=== PATIENT | female | born 1945 | race Caucasian/White ===

== ENCOUNTER 2018-02-05 12:17 | Inpatient (IN) | payer MEDICARE ==
[2018-02-05 12:33] VITALS: BP 105/60
--- NOTE | 2018-02-05 17:34 | Psychosocial Evaluation ---
DATE OF SERVICE: 02/05/2018 IDENTIFYING DATA: The patient is a 72-year-old woman admitted here on a 5150 after she was transferred from [facility]. CHIEF COMPLAINT: "I should not be here." HISTORY OF PRESENT ILLNESS: This is a psychiatric hospitalization to [facility] for this patient who is reported to have been evolved from the assisted living facility and the patient has no concerned even with her broken left arm. The patient is not able to care for herself. The patient has been reported to have been not paying rent and loss the place. The patient at the time of the evaluation has been confused and is not making much sense. The patient has been demanding that she should be discharged. PAST PSYCHIATRIC HISTORY: Details are not known at this time. MEDICAL HISTORY: Physical examination requested to be done by Dr. Pompa. SUBSTANCE ABUSE HISTORY: None. PHYSICAL OR SEXUAL ABUSE HISTORY: None. LEGAL PROBLEMS: None at this time. STRENGTH AND ASSETS: The patient is motivated. MENTAL STATUS EXAMINATION: The patient is a 72-year-old woman, looking her stated age, superficially cooperative. Eye contact is fair. Mood is noted to be irritable. Affect is constricted. The patient has paranoid delusions. The patient is denying any command hallucinations. Insight and judgment are noted to be very much impaired. Impulse control is noted to be poor. Coping skills are noted to be very poor. The patient is gravely disabled and has no clue how she is going to be supporting herself. The patient's short and long-term memory are noted to be poor. The patient is stating that she knows where she is and she is now going to tell me, the patient, however, with great difficulty has been saying that she is close to 72. Attention span and concentration are poor. The patient is walking away when I am trying to talk to her. DIAGNOSTIC IMPRESSION: AXIS I A: Psychosis, not otherwise specified. B. Dementia and behavioral change, secondary trait. AXIS II: None. AXIS III: As per Dr. Pompa. IMMEDIATE TREATMENT PLAN: The patient is going to be observed on inpatient unit, provided with supportive psychotherapy. The patient is going to be closely monitored. I encouraged her to participate in the groups and verbalize the concerns rather than to act out. JOB# [id number]
[2018-02-05] MEDS ORDERED: Maalox 30 mL Cup PO PRN (20:15)
[2018-02-05] MEDS ORDERED: Magnesium Hydroxide (MOM) 30 mL UDC PO PRN (20:15)
[2018-02-06] MEDS: Multivitamin Tab PO SCH (09:51)
--- NOTE | 2018-02-07 02:12 | Progress Notes ---
DATE: 02/06/2018 SUBJECTIVE: Staff was spoken to. The patient is interviewed. Mood is noted to be irritable. Affect is constricted. Insight and judgment are noted to be still impaired. Continues to be psychotic and the patient is pacing most of the time on the unit. The patient has been trying to AWOL. The patient has no idea that she has a broken upper arm. The patient's insight and judgment are noted to be very much impaired. Coping skills are noted to be extremely poor. The patient is getting into others' businesses and needs to be redirected. ASSESSMENT: The patient is still psychotic and gravely disabled. PLAN: To continue the patient with the supportive therapy and followup. JOB# [id number]
[2018-02-07] MEDS: Multivitamin Tab PO SCH (08:42)
--- NOTE | 2018-02-07 15:21 | History & Physical ---
ADMIT DATE: 02/07/2018 CHIEF COMPLAINT: Transfer from [facility] for 5150. HISTORY OF PRESENT ILLNESS: This is a 72-year-old female who was transferred from [facility]. The patient is unable to care for herself and at times is confused. For this reason, the patient is now here at the [facility]. PAST MEDICAL HISTORY: Psychosis, schizophrenia. PAST SURGICAL HISTORY: None per patient. ALLERGIES: CODEINE, DIAZEPAM. MEDICATIONS: Please see medication list. REVIEW OF SYSTEMS: GENERAL: Denies any fevers and chills. CARDIOVASCULAR: Denies chest pain. RESPIRATORY: Denies shortness of breath. GASTROINTESTINAL: Denies nausea, vomiting, abdominal pain. GENITOURINARY: Denies increased frequency or dysuria. NEUROLOGIC: No headaches, seizures or syncope. All other systems are reviewed and are negative. PHYSICAL EXAMINATION: GENERAL: Elderly female, awake, alert, in no apparent distress. VITAL SIGNS: Temperature 98, heart rate 93, blood pressure 118/72, respiration 18, O2 97%. HEENT: Head; normocephalic, atraumatic. NECK: Supple. No mass. LUNGS: Clear bilaterally. HEART: Regular rate and rhythm. ABDOMEN: Soft, nontender. ASSESSMENT: Schizophrenia, psychosis. PLAN: Fall precautions will be initiated and safety precautions. We will continue to follow this patient. JOB# [id number]
--- NOTE | 2018-02-07 20:45 | Progress Notes ---
DATE: 02/07/2018 SUBJECTIVE: Staff was spoken to. The patient is interviewed. Mood is noted to be irritable. Affect is constricted. Insight and judgment at this time are noted to be still impaired. Impulse control seems to be poor. The patient is reporting that she is not able to sleep. The patient continues to be paranoid and has been pacing most of the time on the unit. Insight and judgment at this time are noted to be very much impaired. Impulse control seems to be limited. The patient has no place to return to. The patient, however, has a very high fall risk. ASSESSMENT: The patient is still grossly psychotic. PLAN: To increase the dose on the Seroquel to 25 mg and follow the patient up. JOB# [id number]
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
--- NOTE | 2018-02-08 08:59 | General Progress Note ---
Subjective - Review of Systems Events since last encounter: patient in a 5150 hold transfer from [facility] patient confused Objective - Physical Exam Vitals and I&O: Vital Signs Temp 98.1 F 02/08/18 06:32 Pulse 70 02/08/18 06:32 Resp 20 02/08/18 06:32 BP 119/62 02/08/18 06:32 Pulse Ox 100 02/08/18 06:32 Intake & Output 02/07/18 02/08/18 02/08/18 18:59 06:59 18:59 Intake Total 1200 480 Balance 1200 480 Intake: Oral 1200 480 Other: # Voids 3 2 # Bowel Movements 1 1 Active Medications: Current Medications Acetaminophen (Tylenol) 650 mg PO Q4HR PRN PRN Reason: Mild Pain / Temp above 100 Stop: 04/06/18 20:14 Last Admin: 02/08/18 05:07 Dose: 650 mg Al Hydrox/Mg Hydrox/Simethicone (Maalox) 30 ml PO Q4HR PRN PRN Reason: GI DISTRESS Stop: 04/06/18 20:14 Lorazepam (Ativan) 0.5 mg PO Q4HR PRN; Protocol PRN Reason: Anxiety Stop: 03/07/18 20:14 Last Admin: 02/07/18 03:03 Dose: 0.5 mg Magnesium Hydroxide (Milk Of Magnesia) 30 ml PO HS PRN PRN Reason: Constipation Multivitamins/Vitamin C (Theragran) 1 tab PO DAILY CORNELL Stop: 04/07/18 08:59 Last Admin: 02/07/18 08:42 Dose: 1 tab Quetiapine Fumarate (Seroquel) 25 mg PO HS CORNELL PRN Reason: Protocol Stop: 04/08/18 20:59 Last Admin: 02/07/18 21:20 Dose: 25 mg Zolpidem Tartrate (Ambien) 5 mg PO HS PRN PRN Reason: Insomnia Stop: 04/06/18 20:14 Last Admin: 02/07/18 23:00 Dose: 5 mg
[2018-02-08] MEDS: Multivitamin Tab PO SCH (09:34)
--- NOTE | 2018-02-09 07:31 | Progress Notes ---
DATE: 02/08/2018 PSYCHIATRIC PROGRESS NOTE SUBJECTIVE: Staff was spoken to. The patient is interviewed. Mood is noted to be irritable. Affect is constricted. Insight and judgment are noted to be still impaired. Impulse control is noted to be poor. Coping skills are also noted to be very poor. The patient is trying to check the exit doors and then try to AWOL. The patient has no insight into her illness. ASSESSMENT: The patient is still psychotic and impulsive. PLAN: To continue the patient with the supportive therapy and follow up. JOB# [id number]
[2018-02-09] MEDS: Multivitamin Tab PO SCH (09:36)
--- NOTE | 2018-02-09 20:22 | Internal Medicine Prog Note ---
Internal Medicine Objective - Physical Exam Vitals and I&O: Vital Signs Temp 97.8 F 02/09/18 14:00 Pulse 79 02/09/18 14:00 Resp 20 02/09/18 14:00 BP 127/75 02/09/18 14:00 Pulse Ox 96 02/09/18 14:00 Intake & Output 02/09/18 02/09/18 02/10/18 06:59 18:59 06:59 Intake Total 2320 Balance 2320 Intake: Oral 2320 Other: # Voids 5 # Bowel Movements 1 Active Medications: Current Medications Acetaminophen (Tylenol) 650 mg PO Q4HR PRN PRN Reason: Mild Pain / Temp above 100 Stop: 04/06/18 20:14 Last Admin: 02/08/18 05:07 Dose: 650 mg Al Hydrox/Mg Hydrox/Simethicone (Maalox) 30 ml PO Q4HR PRN PRN Reason: GI DISTRESS Stop: 04/06/18 20:14 Lorazepam (Ativan) 0.5 mg PO Q4HR PRN; Protocol PRN Reason: Anxiety Stop: 03/07/18 20:14 Last Admin: 02/09/18 10:30 Dose: 0.5 mg Magnesium Hydroxide (Milk Of Magnesia) 30 ml PO HS PRN PRN Reason: Constipation Multivitamins/Vitamin C (Theragran) 1 tab PO DAILY CORNELL Stop: 04/07/18 08:59 Last Admin: 02/09/18 09:36 Dose: Not Given Quetiapine Fumarate (Seroquel) 25 mg PO BID CORNELL PRN Reason: Protocol Stop: 04/10/18 16:59 Last Admin: 02/09/18 17:57 Dose: Not Given Zolpidem Tartrate (Ambien) 5 mg PO HS PRN PRN Reason: Insomnia Stop: 04/06/18 20:14 Last Admin: 02/08/18 22:58 Dose: 5 mg
--- NOTE | 2018-02-09 23:55 | Progress Notes ---
DATE: 02/09/2018 SUBJECTIVE: Staff was spoken to. The patient is interviewed. Mood is noted to be irritable. Affect is constricted. Insight and judgment is still impaired. Impulse control seems to be poor. Coping skills are also noted to be very poor. The patient has been getting easily agitated. The patient has no insight. Continues to be very paranoid. The patient is currently on the Seroquel, which is going to be gradually increased to 25 mg twice a day and the patient is going to be followed up with the supportive therapy. The patient has no place to return to. PLAN: Continue the patient with the supportive therapy and work with the field nurse case manager with regard to finding the placement for this patient. JOB# [id number]
[2018-02-10] MEDS: Multivitamin Tab PO SCH (09:09)
--- NOTE | 2018-02-10 13:38 | Internal Medicine Prog Note ---
Internal Medicine Subjective - Subjective Service Date: 02/10/18 Patient seen and examined:: with staff Patient is:: awake Per staff patient has:: tolerating meds Internal Medicine Objective - Physical Exam Vitals and I&O: Vital Signs Temp 98.4 F 02/10/18 07:45 Pulse 70 02/10/18 07:45 Resp 19 02/10/18 07:45 BP 112/66 02/10/18 07:45 Pulse Ox 99 02/10/18 07:45 Intake & Output 02/09/18 02/10/18 02/10/18 18:59 06:59 18:59 Intake Total 2320 240 Balance 2320 240 Intake: Oral 2320 240 Other: # Voids 5 5 # Bowel Movements 1 0 Active Medications: Current Medications Acetaminophen (Tylenol) 650 mg PO Q4HR PRN PRN Reason: Mild Pain / Temp above 100 Stop: 04/06/18 20:14 Last Admin: 02/08/18 05:07 Dose: 650 mg Al Hydrox/Mg Hydrox/Simethicone (Maalox) 30 ml PO Q4HR PRN PRN Reason: GI DISTRESS Stop: 04/06/18 20:14 Lorazepam (Ativan) 0.5 mg PO Q4HR PRN; Protocol PRN Reason: Anxiety Stop: 03/07/18 20:14 Last Admin: 02/09/18 10:30 Dose: 0.5 mg Magnesium Hydroxide (Milk Of Magnesia) 30 ml PO HS PRN PRN Reason: Constipation Multivitamins/Vitamin C (Theragran) 1 tab PO DAILY CORNELL Stop: 04/07/18 08:59 Last Admin: 02/10/18 09:09 Dose: Not Given Quetiapine Fumarate (Seroquel) 25 mg PO BID CORNELL PRN Reason: Protocol Stop: 04/10/18 16:59 Last Admin: 02/10/18 09:09 Dose: Not Given Zolpidem Tartrate (Ambien) 5 mg PO HS PRN PRN Reason: Insomnia Stop: 04/06/18 20:14 Last Admin: 02/08/18 22:58 Dose: 5 mg General: weak, alert HEENT: NC/AT, PERRLA Neck: Supple Lungs: CTAB Cardiovascular: RRR, Normal S1, Normal S2, without murmur Internal Medicine Assmt/Plan - Assessment Assessment: schizoprenia psychosis - Plan Plan: cpm
--- NOTE | 2018-02-11 01:41 | Progress Notes ---
DATE: 02/10/2018 SUBJECTIVE: Staff was spoken to. The patient is interviewed. Mood is noted to be irritable. Affect is constricted. The patient is pacing most of the time on the unit. Coping skills at this time are noted to be very poor. The patient is currently on Seroquel 25 mg twice a day and the patient still continues to be impulsive and needs to be redirected. The patient has been noted to be very paranoid. Coping skills are noted to be still poor. No side effects to the medications are noted. ASSESSMENT: The patient is still psychotic and impulsive. PLAN: To increase the dose on the Seroquel to 50 mg twice a day and encourage the patient to participate in the groups and verbalize the concerns rather than to act out. The patient has no place to return. Plan to continue the patient with the supportive therapy and follow up. JOB# [id number]
[2018-02-11] MEDS: Multivitamin Tab PO SCH (09:09)
--- NOTE | 2018-02-11 10:38 | Internal Medicine Prog Note ---
Internal Medicine Subjective - Subjective Patient is:: awake Per staff patient has:: tolerating meds Internal Medicine Objective - Physical Exam Vitals and I&O: Vital Signs Temp 97.8 F 02/11/18 06:00 Pulse 64 02/11/18 06:00 Resp 18 02/11/18 06:00 BP 114/66 02/11/18 06:00 Pulse Ox 96 02/11/18 06:00 Intake & Output 02/10/18 02/11/18 02/11/18 18:59 06:59 18:59 Intake Total 1100 240 Balance 1100 240 Intake: Oral 1100 240 Other: # Voids 3 1 # Bowel Movements 0 Active Medications: Current Medications Acetaminophen (Tylenol) 650 mg PO Q4HR PRN PRN Reason: Mild Pain / Temp above 100 Stop: 04/06/18 20:14 Last Admin: 02/08/18 05:07 Dose: 650 mg Al Hydrox/Mg Hydrox/Simethicone (Maalox) 30 ml PO Q4HR PRN PRN Reason: GI DISTRESS Stop: 04/06/18 20:14 Lorazepam (Ativan) 0.5 mg PO Q4HR PRN; Protocol PRN Reason: Anxiety Stop: 03/07/18 20:14 Last Admin: 02/10/18 20:16 Dose: 0.5 mg Magnesium Hydroxide (Milk Of Magnesia) 30 ml PO HS PRN PRN Reason: Constipation Multivitamins/Vitamin C (Theragran) 1 tab PO DAILY CORNELL Stop: 04/07/18 08:59 Last Admin: 02/11/18 09:09 Dose: 1 tab Quetiapine Fumarate (Seroquel) 50 mg PO BID CORNELL PRN Reason: Protocol Stop: 04/11/18 18:42 Last Admin: 02/11/18 09:10 Dose: 50 mg Zolpidem Tartrate (Ambien) 5 mg PO HS PRN PRN Reason: Insomnia Stop: 04/06/18 20:14 Last Admin: 02/10/18 20:16 Dose: 5 mg General: weak, alert HEENT: NC/AT, PERRLA Neck: Supple Lungs: CTAB Cardiovascular: RRR, Normal S1, Normal S2, without murmur Nutritional Asmnt/Malnutr-PDOC - Dietary Evaluation Malnutrition Findings (Please click <Entered> for more info): Nutritional Asmnt/Malnutrition Start: 02/10/18 16: 27 Text: Status: Complete Freq: Document 02/10/18 16:27 SARAI (Rec: 02/10/18 16:43 SARAI [id number]) Nutritional Asmnt/Malnutrition Patient General Information Nutritional Screening Moderate Risk Diagnosis psychosis Pertinent Medical Hx/Surgical Hx psychosis, schizophrenia Subjective Information Pt seen sitting on bed at time of visit, having dinner roll. Food preference given. Per EMR, PO intake 75-100%. Current Diet Order/ Nutrition Support vegetarian Pertinent Medications theragran, seroquel Pertinent Labs no lab Nutritional Hx/Data Height 1.75 m Height (Calculated Centimeters) 175.3 Current Weight (lbs) 52.617 kg Weight (Calculated Kilograms) 52.6 Weight (Calculated Grams) 88402.7 [place] Body Weight 145 Body Mass Index (BMI) 17.1 Weight Status Underweight GI Symptoms GI Symptoms None Last BM 02/09 Difficult in: None Skin Integrity/Comment: dryness Current %PO Good (75-100%) Estimated Nutritional Goals BEE in Kcals: Using Current wt Calories/Kcals/Kg 27-32 Kcals Calculated 9499-5706 Protein: Using Current wt Protein g/k.2 Protein Calculated 64 Fluid: ml 1431-1696ml (1ml/kcal) Nutritional Problem 1. Problem Problem underweight Etiology possible inadequate energy intake Signs/Symptoms: BMI 17.1 Malnutrition Alert Body Fat Depletion (Severe) Mod to Severe Depletion Protein-Calorie Malnutrition N/A Is there a minimum of two criteria No selected? Query Text:Check all the applicable criteria. A minimum of two criteria are recommended for diagnosis of either severe or non-severe malnutrition. Intervention/Recommendation Comments 1. Continue with current diet as ordered. food preference updated with lens and frames prescription clerk. 2. Monitor PO intake, wt, labs and skin integrity 3. F/U as low risk in 7 days, 02/17 Expected Outcomes/Goals Expected Outcomes/Goals 1. PO intake to meet at least 75% of nutritional needs. 2. Wt stability, skin to remain intact, labs to approach WNL.
--- NOTE | 2018-02-11 18:26 | Progress Notes ---
DATE: 02/11/2018 SUBJECTIVE: Staff was spoken to. The patient is interviewed. Mood is noted to be irritable. Affect is constricted. Insight and judgment noted to be still impaired. The patient has paranoia. The patient is pacing most of the time on the unit. Coping skills are noted to be very poor. No side effects to the medications are noted. ASSESSMENT: The patient is still paranoid. PLAN: To continue the patient with the supportive therapy, encouraged the patient to verbalize the concerns rather than to act out. [facility]# [id number]
[2018-02-12] MEDS: Multivitamin Tab PO SCH (09:13)
--- NOTE | 2018-02-12 12:11 | General Progress Note ---
Subjective - Review of Systems Events since last encounter: patient still paranoid irritable Objective - Physical Exam Vitals and I&O: Vital Signs Temp 97.6 F 02/12/18 06:51 Pulse 53 02/12/18 06:51 Resp 19 02/12/18 06:51 BP 162/87 02/12/18 06:51 Pulse Ox 96 02/12/18 06:51 Intake & Output 02/11/18 02/12/18 02/12/18 18:59 06:59 18:59 Intake Total 720 Balance 720 Intake: Oral 720 Other: # Voids 2 Active Medications: Current Medications Acetaminophen (Tylenol) 650 mg PO Q4HR PRN PRN Reason: Mild Pain / Temp above 100 Stop: 04/06/18 20:14 Last Admin: 02/08/18 05:07 Dose: 650 mg Al Hydrox/Mg Hydrox/Simethicone (Maalox) 30 ml PO Q4HR PRN PRN Reason: GI DISTRESS Stop: 04/06/18 20:14 Lorazepam (Ativan) 0.5 mg PO Q4HR PRN; Protocol PRN Reason: Anxiety Stop: 03/07/18 20:14 Last Admin: 02/10/18 20:16 Dose: 0.5 mg Magnesium Hydroxide (Milk Of Magnesia) 30 ml PO HS PRN PRN Reason: Constipation Multivitamins/Vitamin C (Theragran) 1 tab PO DAILY CORNELL Stop: 04/07/18 08:59 Last Admin: 02/12/18 09:13 Dose: 1 tab Quetiapine Fumarate (Seroquel) 50 mg PO BID CORNELL PRN Reason: Protocol Stop: 04/11/18 18:42 Last Admin: 02/12/18 09:12 Dose: 50 mg Zolpidem Tartrate (Ambien) 5 mg PO HS PRN PRN Reason: Insomnia Stop: 04/06/18 20:14 Last Admin: 02/10/18 20:16 Dose: 5 mg Nutritional Asmnt/Malnutr-PDOC - Dietary Evaluation Malnutrition Findings (Please click <Entered> for more info): Nutritional Asmnt/Malnutrition Start: 02/10/18 16: 27 Text: Status: Complete Freq: Document 02/10/18 16:27 SARAI (Rec: 02/10/18 16:43 SARAI [id number]) Nutritional Asmnt/Malnutrition Patient General Information Nutritional Screening Moderate Risk Diagnosis psychosis Pertinent Medical Hx/Surgical Hx psychosis, schizophrenia Subjective Information Pt seen sitting on bed at time of visit, having dinner roll. Food preference given. Per EMR, PO intake 75-100%. Current Diet Order/ Nutrition Support vegetarian Pertinent Medications theragran, seroquel Pertinent Labs no lab Nutritional Hx/Data Height 1.75 m Height (Calculated Centimeters) 175.3 Current Weight (lbs) 52.617 kg Weight (Calculated Kilograms) 52.6 Weight (Calculated Grams) 65529.7 [place] Body Weight 145 Body Mass Index (BMI) 17.1 Weight Status Underweight GI Symptoms GI Symptoms None Last BM 02/09 Difficult in: None Skin Integrity/Comment: dryness Current %PO Good (75-100%) Estimated Nutritional Goals BEE in Kcals: Using Current wt Calories/Kcals/Kg 27-32 Kcals Calculated 0769-1684 Protein: Using Current wt Protein g/k.2 Protein Calculated 64 Fluid: ml 1431-1696ml (1ml/kcal) Nutritional Problem 1. Problem Problem underweight Etiology possible inadequate energy intake Signs/Symptoms: BMI 17.1 Malnutrition Alert Body Fat Depletion (Severe) Mod to Severe Depletion Protein-Calorie Malnutrition N/A Is there a minimum of two criteria No selected? Query Text:Check all the applicable criteria. A minimum of two criteria are recommended for diagnosis of either severe or non-severe malnutrition. Intervention/Recommendation Comments 1. Continue with current diet as ordered. food preference updated with renal dietitian. 2. Monitor PO intake, wt, labs and skin integrity 3. F/U as low risk in 7 days, 02/17 Expected Outcomes/Goals Expected Outcomes/Goals 1. PO intake to meet at least 75% of nutritional needs. 2. Wt stability, skin to remain intact, labs to approach WNL.
--- NOTE | 2018-02-13 03:31 | Progress Notes ---
DATE: 02/12/2018 SUBJECTIVE: Staff was spoken to. The patient is interviewed. Mood is noted to be irritable. Affect is constricted. The patient is very argumentative today and the patient is stating that she needs to be fed every 2 hours. Coping skills at this time are noted to be very poor. Continues to be very paranoid. The patient is not sleeping. The patient is pacing most of the time. ASSESSMENT: The patient is still grossly psychotic. PLAN: To increase the dose on the Seroquel to 100 mg twice a day and follow the patient with the supportive therapy. JOB# [id number]
[2018-02-13] MEDS: Multivitamin Tab PO SCH ×2 (08:17→08:21)
--- NOTE | 2018-02-13 20:30 | Internal Medicine Prog Note ---
Internal Medicine Subjective - Subjective Patient is:: awake Per staff patient has:: tolerating meds Internal Medicine Objective - Physical Exam Vitals and I&O: Vital Signs Temp 97.2 F 02/13/18 15:37 Pulse 82 02/13/18 15:37 Resp 18 02/13/18 15:37 BP 121/64 02/13/18 15:37 Pulse Ox 97 02/13/18 15:37 Intake & Output 02/13/18 02/13/18 02/14/18 06:59 18:59 06:59 Intake Total 480 1800 Balance 480 1800 Intake: Oral 480 1800 Other: # Voids 3 # Bowel Movements 0 Active Medications: Current Medications Acetaminophen (Tylenol) 650 mg PO Q4HR PRN PRN Reason: Mild Pain / Temp above 100 Stop: 04/06/18 20:14 Last Admin: 02/08/18 05:07 Dose: 650 mg Al Hydrox/Mg Hydrox/Simethicone (Maalox) 30 ml PO Q4HR PRN PRN Reason: GI DISTRESS Stop: 04/06/18 20:14 Lorazepam (Ativan) 0.5 mg PO Q4HR PRN; Protocol PRN Reason: Anxiety Stop: 03/07/18 20:14 Last Admin: 02/10/18 20:16 Dose: 0.5 mg Magnesium Hydroxide (Milk Of Magnesia) 30 ml PO HS PRN PRN Reason: Constipation Multivitamins/Vitamin C (Theragran) 1 tab PO DAILY CORNELL Stop: 04/07/18 08:59 Last Admin: 02/13/18 08:21 Dose: Not Given Quetiapine Fumarate (Seroquel) 100 mg PO BID CORNELL PRN Reason: Protocol Stop: 04/13/18 15:28 Last Admin: 02/13/18 16:37 Dose: 100 mg Zolpidem Tartrate (Ambien) 5 mg PO HS PRN PRN Reason: Insomnia Stop: 04/06/18 20:14 Last Admin: 02/10/18 20:16 Dose: 5 mg General: weak, alert HEENT: NC/AT, PERRLA Neck: Supple Lungs: CTAB Cardiovascular: RRR, Normal S1, Normal S2, without murmur Nutritional Asmnt/Malnutr-PDOC - Dietary Evaluation Malnutrition Findings (Please click <Entered> for more info): Nutritional Asmnt/Malnutrition Start: 02/10/18 16: 27 Text: Status: Complete Freq: Document 02/10/18 16:27 SARAI (Rec: 02/10/18 16:43 LCVALARIE [id number]) Nutritional Asmnt/Malnutrition Patient General Information Nutritional Screening Moderate Risk Diagnosis psychosis Pertinent Medical Hx/Surgical Hx psychosis, schizophrenia Subjective Information Pt seen sitting on bed at time of visit, having dinner roll. Food preference given. Per EMR, PO intake 75-100%. Current Diet Order/ Nutrition Support vegetarian Pertinent Medications theragran, seroquel Pertinent Labs no lab Nutritional Hx/Data Height 1.75 m Height (Calculated Centimeters) 175.3 Current Weight (lbs) 52.617 kg Weight (Calculated Kilograms) 52.6 Weight (Calculated Grams) 68859.7 [place] Body Weight 145 Body Mass Index (BMI) 17.1 Weight Status Underweight GI Symptoms GI Symptoms None Last BM 02/09 Difficult in: None Skin Integrity/Comment: dryness Current %PO Good (75-100%) Estimated Nutritional Goals BEE in Kcals: Using Current wt Calories/Kcals/Kg 27-32 Kcals Calculated 2271-6451 Protein: Using Current wt Protein g/k.2 Protein Calculated 64 Fluid: ml 1431-1696ml (1ml/kcal) Nutritional Problem 1. Problem Problem underweight Etiology possible inadequate energy intake Signs/Symptoms: BMI 17.1 Malnutrition Alert Body Fat Depletion (Severe) Mod to Severe Depletion Protein-Calorie Malnutrition N/A Is there a minimum of two criteria No selected? Query Text:Check all the applicable criteria. A minimum of two criteria are recommended for diagnosis of either severe or non-severe malnutrition. Intervention/Recommendation Comments 1. Continue with current diet as ordered. food preference updated with diet tech. 2. Monitor PO intake, wt, labs and skin integrity 3. F/U as low risk in 7 days, 02/17 Expected Outcomes/Goals Expected Outcomes/Goals 1. PO intake to meet at least 75% of nutritional needs. 2. Wt stability, skin to remain intact, labs to approach WNL.
--- NOTE | 2018-02-14 03:27 | Progress Notes ---
DATE: 02/13/2018 SUBJECTIVE: Staff was spoken to. The patient is interviewed. Mood is noted to be anxious. The patient is stating that she needs to be having the snacks every 2 hours and otherwise she is not going to be taking the medication. Coping skills at this time are noted to be very poor. Insight and judgment also noted to be very much impaired. No side effects to the medications are noted. ASSESSMENT: The patient is still psychotic. PLAN: To continue the patient with the Seroquel that was increased to 100 mg twice a day and the patient is going to be followed up with the supportive therapy. JOB# [id number]
[2018-02-14] MEDS: Multivitamin Tab PO SCH (10:22)
--- NOTE | 2018-02-14 14:12 | Progress Notes ---
DATE: 02/14/2018 SUBJECTIVE: Staff was spoken to. The patient is interviewed. Mood is noted to be irritable. Affect is constricted. The patient is pacing on the unit. Continues to be very paranoid and talking to self, not making much sense. Coping skills are noted to be very poor. The patient has been having difficult time to cope with the stress. Continues to be demanding that she should be fed every 2 hours, otherwise she is not going to take the medication. ASSESSMENT: The patient is still psychotic. PLAN: To continue the patient with the Seroquel and followup. JOB# [id number]
--- NOTE | 2018-02-14 20:13 | Internal Medicine Prog Note ---
Internal Medicine Subjective - Subjective Service Date: 02/14/18 Patient seen and examined:: with staff Patient is:: awake Per staff patient has:: tolerating meds Internal Medicine Objective - Physical Exam Vitals and I&O: Vital Signs Temp 97.4 F 02/14/18 16:21 Pulse 68 02/14/18 16:21 Resp 18 02/14/18 16:21 BP 120/76 02/14/18 16:21 Pulse Ox 97 02/14/18 16:21 Intake & Output 02/14/18 02/14/18 02/15/18 06:59 18:59 06:59 Intake Total 720 1500 Balance 720 1500 Intake: Oral 720 1500 Other: # Voids 2 3 # Bowel Movements 1 1 Active Medications: Current Medications Acetaminophen (Tylenol) 650 mg PO Q4HR PRN PRN Reason: Mild Pain / Temp above 100 Stop: 04/06/18 20:14 Last Admin: 02/08/18 05:07 Dose: 650 mg Al Hydrox/Mg Hydrox/Simethicone (Maalox) 30 ml PO Q4HR PRN PRN Reason: GI DISTRESS Stop: 04/06/18 20:14 Lorazepam (Ativan) 0.5 mg PO Q4HR PRN; Protocol PRN Reason: Anxiety Stop: 03/07/18 20:14 Last Admin: 02/10/18 20:16 Dose: 0.5 mg Magnesium Hydroxide (Milk Of Magnesia) 30 ml PO HS PRN PRN Reason: Constipation Multivitamins/Vitamin C (Theragran) 1 tab PO DAILY CORNELL Stop: 04/07/18 08:59 Last Admin: 02/14/18 10:22 Dose: Not Given Quetiapine Fumarate (Seroquel) 100 mg PO BID CORNELL PRN Reason: Protocol Stop: 04/13/18 15:28 Last Admin: 02/14/18 18:15 Dose: Not Given Zolpidem Tartrate (Ambien) 5 mg PO HS PRN PRN Reason: Insomnia Stop: 04/06/18 20:14 Last Admin: 02/10/18 20:16 Dose: 5 mg General: weak, alert HEENT: NC/AT, PERRLA Neck: Supple Lungs: CTAB Cardiovascular: RRR, Normal S1, Normal S2, without murmur Nutritional Asmnt/Malnutr-PDOC - Dietary Evaluation Malnutrition Findings (Please click <Entered> for more info): Nutritional Asmnt/Malnutrition Start: 02/10/18 16: 27 Text: Status: Complete Freq: Document 02/10/18 16:27 IRWINVALARIE (Rec: 02/10/18 16:43 SARAI [id number]) Nutritional Asmnt/Malnutrition Patient General Information Nutritional Screening Moderate Risk Diagnosis psychosis Pertinent Medical Hx/Surgical Hx psychosis, schizophrenia Subjective Information Pt seen sitting on bed at time of visit, having dinner roll. Food preference given. Per EMR, PO intake 75-100%. Current Diet Order/ Nutrition Support vegetarian Pertinent Medications theragran, seroquel Pertinent Labs no lab Nutritional Hx/Data Height 1.75 m Height (Calculated Centimeters) 175.3 Current Weight (lbs) 52.617 kg Weight (Calculated Kilograms) 52.6 Weight (Calculated Grams) 88364.7 [place] Body Weight 145 Body Mass Index (BMI) 17.1 Weight Status Underweight GI Symptoms GI Symptoms None Last BM 02/09 Difficult in: None Skin Integrity/Comment: dryness Current %PO Good (75-100%) Estimated Nutritional Goals BEE in Kcals: Using Current wt Calories/Kcals/Kg 27-32 Kcals Calculated 1291-0283 Protein: Using Current wt Protein g/k.2 Protein Calculated 64 Fluid: ml 1431-1696ml (1ml/kcal) Nutritional Problem 1. Problem Problem underweight Etiology possible inadequate energy intake Signs/Symptoms: BMI 17.1 Malnutrition Alert Body Fat Depletion (Severe) Mod to Severe Depletion Protein-Calorie Malnutrition N/A Is there a minimum of two criteria No selected? Query Text:Check all the applicable criteria. A minimum of two criteria are recommended for diagnosis of either severe or non-severe malnutrition. Intervention/Recommendation Comments 1. Continue with current diet as ordered. food preference updated with food service counter clerk. 2. Monitor PO intake, wt, labs and skin integrity 3. F/U as low risk in 7 days, 02/17 Expected Outcomes/Goals Expected Outcomes/Goals 1. PO intake to meet at least 75% of nutritional needs. 2. Wt stability, skin to remain intact, labs to approach WNL.
[2018-02-15] MEDS: Multivitamin Tab PO SCH (10:48)
--- NOTE | 2018-02-15 14:11 | General Progress Note ---
Subjective - Review of Systems Events since last encounter: patient still psychotic Objective - Physical Exam Vitals and I&O: Vital Signs Temp 97.2 F 02/15/18 06:22 Pulse 71 02/15/18 06:22 Resp 20 02/15/18 06:22 BP 124/75 02/15/18 06:22 Pulse Ox 97 02/15/18 06:22 Intake & Output 02/14/18 02/15/18 02/15/18 18:59 06:59 18:59 Intake Total 1500 120 Balance 1500 120 Intake: Oral 1500 120 Other: # Voids 3 2 # Bowel Movements 1 Active Medications: Current Medications Acetaminophen (Tylenol) 650 mg PO Q4HR PRN PRN Reason: Mild Pain / Temp above 100 Stop: 04/06/18 20:14 Last Admin: 02/08/18 05:07 Dose: 650 mg Al Hydrox/Mg Hydrox/Simethicone (Maalox) 30 ml PO Q4HR PRN PRN Reason: GI DISTRESS Stop: 04/06/18 20:14 Lorazepam (Ativan) 0.5 mg PO Q4HR PRN; Protocol PRN Reason: Anxiety Stop: 03/07/18 20:14 Last Admin: 02/10/18 20:16 Dose: 0.5 mg Magnesium Hydroxide (Milk Of Magnesia) 30 ml PO HS PRN PRN Reason: Constipation Multivitamins/Vitamin C (Theragran) 1 tab PO DAILY CORNELL Stop: 04/07/18 08:59 Last Admin: 02/15/18 10:48 Dose: Not Given Quetiapine Fumarate (Seroquel) 100 mg PO BID CORNELL PRN Reason: Protocol Stop: 04/13/18 15:28 Last Admin: 02/15/18 10:49 Dose: Not Given Zolpidem Tartrate (Ambien) 5 mg PO HS PRN PRN Reason: Insomnia Stop: 04/06/18 20:14 Last Admin: 02/10/18 20:16 Dose: 5 mg Nutritional Asmnt/Malnutr-PDOC - Dietary Evaluation Malnutrition Findings (Please click <Entered> for more info): Nutritional Asmnt/Malnutrition Start: 02/10/18 16: 27 Text: Status: Complete Freq: Document 02/10/18 16:27 MCKENZIEG (Rec: 02/10/18 16:43 [email or web address] [id number]) Nutritional Asmnt/Malnutrition Patient General Information Nutritional Screening Moderate Risk Diagnosis psychosis Pertinent Medical Hx/Surgical Hx psychosis, schizophrenia Subjective Information Pt seen sitting on bed at time of visit, having dinner roll. Food preference given. Per EMR, PO intake 75-100%. Current Diet Order/ Nutrition Support vegetarian Pertinent Medications theragran, seroquel Pertinent Labs no lab Nutritional Hx/Data Height 1.75 m Height (Calculated Centimeters) 175.3 Current Weight (lbs) 52.617 kg Weight (Calculated Kilograms) 52.6 Weight (Calculated Grams) 21934.7 [place] Body Weight 145 Body Mass Index (BMI) 17.1 Weight Status Underweight GI Symptoms GI Symptoms None Last BM 02/09 Difficult in: None Skin Integrity/Comment: dryness Current %PO Good (75-100%) Estimated Nutritional Goals BEE in Kcals: Using Current wt Calories/Kcals/Kg 27-32 Kcals Calculated 5079-0593 Protein: Using Current wt Protein g/k.2 Protein Calculated 64 Fluid: ml 1431-1696ml (1ml/kcal) Nutritional Problem 1. Problem Problem underweight Etiology possible inadequate energy intake Signs/Symptoms: BMI 17.1 Malnutrition Alert Body Fat Depletion (Severe) Mod to Severe Depletion Protein-Calorie Malnutrition N/A Is there a minimum of two criteria No selected? Query Text:Check all the applicable criteria. A minimum of two criteria are recommended for diagnosis of either severe or non-severe malnutrition. Intervention/Recommendation Comments 1. Continue with current diet as ordered. food preference updated with dietician. 2. Monitor PO intake, wt, labs and skin integrity 3. F/U as low risk in 7 days, 02/17 Expected Outcomes/Goals Expected Outcomes/Goals 1. PO intake to meet at least 75% of nutritional needs. 2. Wt stability, skin to remain intact, labs to approach WNL.
--- NOTE | 2018-02-16 02:54 | Progress Notes ---
DATE: 02/15/2018 SUBJECTIVE: Staff was spoken to. The patient is interviewed. Mood is noted to be irritable. Affect is constricted. Insight and judgment are very much impaired. Impulse control is noted to be limited. The patient is stating that she is expecting the doctor to come and then pick her up. The next minute she comes in and tells that her mother and are going to come in to pick her up. OBJECTIVE: The patient is very irritable, angry, confused and paranoid. The patient is currently on Seroquel and is able to tolerate the medication. PLAN: To continue the patient with current medications. I encouraged the patient to verbalize the concerns rather than to act out. JOB# [id number]
--- NOTE | 2018-02-16 09:43 | General Progress Note ---
Subjective - Review of Systems Events since last encounter: patient still irritable and confused Objective - Physical Exam Vitals and I&O: Vital Signs Temp 98.2 F 02/16/18 06:46 Pulse 73 02/16/18 06:46 Resp 18 02/16/18 06:46 BP 131/83 02/16/18 06:46 Pulse Ox 97 02/16/18 06:46 Intake & Output 02/15/18 02/16/18 02/16/18 18:59 06:59 18:59 Intake Total 1800 120 Balance 1800 120 Intake: Oral 1800 120 Other: # Voids 4 3 # Bowel Movements 1 Active Medications: Current Medications Acetaminophen (Tylenol) 650 mg PO Q4HR PRN PRN Reason: Mild Pain / Temp above 100 Stop: 04/06/18 20:14 Last Admin: 02/08/18 05:07 Dose: 650 mg Al Hydrox/Mg Hydrox/Simethicone (Maalox) 30 ml PO Q4HR PRN PRN Reason: GI DISTRESS Stop: 04/06/18 20:14 Lorazepam (Ativan) 0.5 mg PO Q4HR PRN; Protocol PRN Reason: Anxiety Stop: 03/07/18 20:14 Last Admin: 02/10/18 20:16 Dose: 0.5 mg Magnesium Hydroxide (Milk Of Magnesia) 30 ml PO HS PRN PRN Reason: Constipation Multivitamins/Vitamin C (Theragran) 1 tab PO DAILY CORNELL Stop: 04/07/18 08:59 Last Admin: 02/15/18 10:48 Dose: Not Given Quetiapine Fumarate (Seroquel) 100 mg PO BID CORNELL PRN Reason: Protocol Stop: 04/13/18 15:28 Last Admin: 02/15/18 10:49 Dose: Not Given Zolpidem Tartrate (Ambien) 5 mg PO HS PRN PRN Reason: Insomnia Stop: 04/06/18 20:14 Last Admin: 02/10/18 20:16 Dose: 5 mg Nutritional Asmnt/Malnutr-PDOC - Dietary Evaluation Malnutrition Findings (Please click <Entered> for more info): Nutritional Asmnt/Malnutrition Start: 02/10/18 16: 27 Text: Status: Complete Freq: Document 02/10/18 16:27 SARAI (Rec: 02/10/18 16:43 LCHENG [id number]) Nutritional Asmnt/Malnutrition Patient General Information Nutritional Screening Moderate Risk Diagnosis psychosis Pertinent Medical Hx/Surgical Hx psychosis, schizophrenia Subjective Information Pt seen sitting on bed at time of visit, having dinner roll. Food preference given. Per EMR, PO intake 75-100%. Current Diet Order/ Nutrition Support vegetarian Pertinent Medications theragran, seroquel Pertinent Labs no lab Nutritional Hx/Data Height 1.75 m Height (Calculated Centimeters) 175.3 Current Weight (lbs) 52.617 kg Weight (Calculated Kilograms) 52.6 Weight (Calculated Grams) 54219.7 [place] Body Weight 145 Body Mass Index (BMI) 17.1 Weight Status Underweight GI Symptoms GI Symptoms None Last BM 02/09 Difficult in: None Skin Integrity/Comment: dryness Current %PO Good (75-100%) Estimated Nutritional Goals BEE in Kcals: Using Current wt Calories/Kcals/Kg 27-32 Kcals Calculated 6689-2926 Protein: Using Current wt Protein g/k.2 Protein Calculated 64 Fluid: ml 1431-1696ml (1ml/kcal) Nutritional Problem 1. Problem Problem underweight Etiology possible inadequate energy intake Signs/Symptoms: BMI 17.1 Malnutrition Alert Body Fat Depletion (Severe) Mod to Severe Depletion Protein-Calorie Malnutrition N/A Is there a minimum of two criteria No selected? Query Text:Check all the applicable criteria. A minimum of two criteria are recommended for diagnosis of either severe or non-severe malnutrition. Intervention/Recommendation Comments 1. Continue with current diet as ordered. food preference updated with costume rental clerk. 2. Monitor PO intake, wt, labs and skin integrity 3. F/U as low risk in 7 days, 02/17 Expected Outcomes/Goals Expected Outcomes/Goals 1. PO intake to meet at least 75% of nutritional needs. 2. Wt stability, skin to remain intact, labs to approach WNL.
[2018-02-16] MEDS ORDERED: Haloperidol Lactate 5 mg/mL 1mL Vial ONE (09:48)
[2018-02-16] MEDS ORDERED: Haloperidol Lactate 5 mg/mL 1mL Vial IM ONE (09:53)
[2018-02-16] MEDS: Multivitamin Tab PO SCH (09:57)
--- NOTE | 2018-02-16 17:13 | Progress Notes ---
DATE: 02/16/2018 SUBJECTIVE: Staff was spoken to. The patient is interviewed. Mood is noted to be anxious. The patient's coping skills at this time are noted to be poor. The patient has been 1 minute stating that she wants to go with her doctor, in the next minute her mother is going to come to pick her up, the next minute she is saying that her is going to come to pick her up. The patient is still impulsive and has been noncompliant with the medication. He is reporting that she needs to be every 2 hours that is the only way that she can take the medication. ASSESSMENT: The patient is still grossly psychotic. PLAN: To continue the patient with the supportive therapy, encouraged the patient to verbalize the concerns rather than to act out. JOB# [id number]
[2018-02-17] MEDS: Multivitamin Tab PO SCH (09:44)
--- NOTE | 2018-02-18 03:00 | Progress Notes ---
DATE: 02/17/2018 SUBJECTIVE: Staff was spoken to. The patient is interviewed. Mood is noted to be irritable. Affect is constricted. Insight and judgment are noted to be still impaired. Impulse control is noted to be poor. Coping skills are noted to be very poor. The patient has been having difficult time to cope with the stress pacing most of the time on the unit. The patient is stating that she needs the Adderall. She does not need any other medications, states she does not want to take the Risperdal. Coping skills at this time are noted to be very poor. ASSESSMENT: The patient is still grossly psychotic. PLAN: Start the patient on haloperidol and possibly give a dose to see if she is going to be responding. The patient has no place to return to and on top of it the patient is not able to contract for safety. No side effects to the medication. The patient has been refusing to comply with the treatment and hence Seroquel is going to be discontinued. The patient is going to be started on the haloperidol with an intent to give the medication intramuscularly. Plan to add the Haldol and then if the patient refuses, the patient is going to be given the medication via injection for her agitation. JOB# [id number]
[2018-02-18] MEDS: Multivitamin Tab PO SCH (08:00)
[2018-02-18] MEDS ORDERED: Haloperidol Lactate 5 mg/mL 1mL Vial IM ONE (10:37)
--- NOTE | 2018-02-18 16:14 | Progress Notes ---
DATE: 02/18/2018 SUBJECTIVE: Staff was spoken to. The patient is interviewed. Mood is noted to be irritable. Affect is constricted. The patient is stating that she has decided not to take any medications except for the Adderall. The patient is stating that her timber poisoner is here waiting for her to be picked up. Yesterday, she was telling her mother and her . Today, she is changing it to the timber poisoner. Coping skills are noted to be poor. Continues to be very paranoid. PLAN: The patient is going to be given a dose of the Haldol and if she is able to tolerate, possibly Haldol Decanoate is going to be looked into. [facility]# [id number]
--- NOTE | 2018-02-19 01:37 | Progress Notes ---
DATE: 02/18/2018 SUBJECTIVE: The patient was seen in her room, lying in the bed. The patient appears to be withdrawn and agitated. Otherwise, the patient appears to be in no acute distress. OBJECTIVE: VITAL SIGNS: Temperature 97.6, heart rate of 81, blood pressure 115/64, respirations 20, and 100% on room air. HEENT: Head is atraumatic and normocephalic. Eyes: Conjunctivae are clear. Bilateral pupils are equally round and reactive. NECK: Supple. No JVD. CARDIOVASCULAR: S1 and S2, without murmur. PULMONARY: Clear to auscultation. GASTROINTESTINAL: Soft and nontender without guarding. Positive bowel sounds. MUSCULOSKELETAL: No clubbing. No cyanosis noted. ASSESSMENT: 1. Psychosis. 2. Dementia. 3. Osteoarthritis. PLAN: We will keep the patient inpatient in Psychiatric Unit. We will follow up with a psychiatrist and monitor the patient's condition and behavior. Treatment plans were discussed with the patient's nurse. Treatment plans were discussed with Dr. Pompa. JOB# [id number]
[2018-02-19] MEDS: Multivitamin Tab PO SCH (08:10)
--- NOTE | 2018-02-19 08:40 | General Progress Note ---
Subjective - Review of Systems Events since last encounter: patient continues to be irritable, paranoid otherwise in no acute distress Objective - Physical Exam Vitals and I&O: Vital Signs Temp 97.4 F 02/19/18 06:37 Pulse 81 02/19/18 06:37 Resp 20 02/19/18 06:37 BP 144/86 02/19/18 06:37 Pulse Ox 97 02/19/18 06:37 Intake & Output 02/18/18 02/19/18 02/19/18 18:59 06:59 18:59 Intake Total 1000 120 Balance 1000 120 Intake: Oral 1000 120 Other: # Voids 2 2 # Bowel Movements 0 Stool Characteristics Formed Formed Brown Brown Active Medications: Current Medications Acetaminophen (Tylenol) 650 mg PO Q4HR PRN PRN Reason: Mild Pain / Temp above 100 Stop: 04/06/18 20:14 Last Admin: 02/08/18 05:07 Dose: 650 mg Al Hydrox/Mg Hydrox/Simethicone (Maalox) 30 ml PO Q4HR PRN PRN Reason: GI DISTRESS Stop: 04/06/18 20:14 Haloperidol (Haldol) 2 mg PO BID CORNELL PRN Reason: Protocol Stop: 04/19/18 08:59 Lorazepam (Ativan) 0.5 mg PO Q4HR PRN; Protocol PRN Reason: Anxiety Stop: 03/07/18 20:14 Last Admin: 02/10/18 20:16 Dose: 0.5 mg Magnesium Hydroxide (Milk Of Magnesia) 30 ml PO HS PRN PRN Reason: Constipation Multivitamins/Vitamin C (Theragran) 1 tab PO DAILY CORNELL Stop: 04/07/18 08:59 Last Admin: 02/19/18 08:10 Dose: Not Given Zolpidem Tartrate (Ambien) 5 mg PO HS PRN PRN Reason: Insomnia Stop: 04/06/18 20:14 Last Admin: 02/10/18 20:16 Dose: 5 mg Nutritional Asmnt/Malnutr-PDOC - Dietary Evaluation Malnutrition Findings (Please click <Entered> for more info): Nutritional Asmnt/Malnutrition Start: 02/10/18 16: 27 Text: Status: Complete Freq: Document 02/10/18 16:27 SARAI (Rec: 02/10/18 16:43 SARAI [id number]) Nutritional Asmnt/Malnutrition Patient General Information Nutritional Screening Moderate Risk Diagnosis psychosis Pertinent Medical Hx/Surgical Hx psychosis, schizophrenia Subjective Information Pt seen sitting on bed at time of visit, having dinner roll. Food preference given. Per EMR, PO intake 75-100%. Current Diet Order/ Nutrition Support vegetarian Pertinent Medications theragran, seroquel Pertinent Labs no lab Nutritional Hx/Data Height 1.75 m Height (Calculated Centimeters) 175.3 Current Weight (lbs) 52.617 kg Weight (Calculated Kilograms) 52.6 Weight (Calculated Grams) 59684.7 [place] Body Weight 145 Body Mass Index (BMI) 17.1 Weight Status Underweight GI Symptoms GI Symptoms None Last BM 02/09 Difficult in: None Skin Integrity/Comment: dryness Current %PO Good (75-100%) Estimated Nutritional Goals BEE in Kcals: Using Current wt Calories/Kcals/Kg 27-32 Kcals Calculated 6764-8683 Protein: Using Current wt Protein g/k.2 Protein Calculated 64 Fluid: ml 1431-1696ml (1ml/kcal) Nutritional Problem 1. Problem Problem underweight Etiology possible inadequate energy intake Signs/Symptoms: BMI 17.1 Malnutrition Alert Body Fat Depletion (Severe) Mod to Severe Depletion Protein-Calorie Malnutrition N/A Is there a minimum of two criteria No selected? Query Text:Check all the applicable criteria. A minimum of two criteria are recommended for diagnosis of either severe or non-severe malnutrition. Intervention/Recommendation Comments 1. Continue with current diet as ordered. food preference updated with diet supervisor. 2. Monitor PO intake, wt, labs and skin integrity 3. F/U as low risk in 7 days, 02/17 Expected Outcomes/Goals Expected Outcomes/Goals 1. PO intake to meet at least 75% of nutritional needs. 2. Wt stability, skin to remain intact, labs to approach WNL.
--- NOTE | 2018-02-20 01:23 | Progress Notes ---
DATE: 02/19/2018 PSYCHIATRIC PROGRESS NOTE SUBJECTIVE: Staff was spoken to. The patient is interviewed. Mood is noted to be irritable. Affect is constricted. Coping skills are noted to be poor. Sleep and appetite are also noted to be very poor. The patient has been able to accept the medication yesterday, but the patient continues to be paranoid. If the patient is able to tolerate the Haldol today, possibly the patient is going to be given the Haldol Decanoate tomorrow. JOB# [id number]
[2018-02-20] MEDS: Multivitamin Tab PO SCH (09:49)
--- NOTE | 2018-02-20 14:10 | General Progress Note ---
Subjective - Review of Systems Events since last encounter: patient confused irritable not eating well denies pain Objective - Physical Exam Vitals and I&O: Vital Signs Temp 97.7 F 02/20/18 06:06 Pulse 74 02/20/18 06:06 Resp 20 02/20/18 06:06 BP 127/68 02/20/18 06:06 Pulse Ox 97 02/20/18 06:06 Intake & Output 02/19/18 02/20/18 02/20/18 18:59 06:59 18:59 Intake Total 1200 460 Balance 1200 460 Intake: Oral 1200 460 Other: # Voids 4 1 # Bowel Movements 2 0 Active Medications: Current Medications Acetaminophen (Tylenol) 650 mg PO Q4HR PRN PRN Reason: Mild Pain / Temp above 100 Stop: 04/06/18 20:14 Last Admin: 02/08/18 05:07 Dose: 650 mg Al Hydrox/Mg Hydrox/Simethicone (Maalox) 30 ml PO Q4HR PRN PRN Reason: GI DISTRESS Stop: 04/06/18 20:14 Haloperidol (Haldol) 2 mg PO BID CORNELL PRN Reason: Protocol Stop: 04/19/18 08:59 Last Admin: 02/20/18 09:49 Dose: 2 mg Haloperidol Decanoate (Haldol Dec) 50 mg IM QMONTH CORNELL PRN Reason: Protocol Stop: 04/21/18 13:59 Lorazepam (Ativan) 0.5 mg PO Q4HR PRN; Protocol PRN Reason: Anxiety Stop: 03/07/18 20:14 Last Admin: 02/20/18 09:49 Dose: 0.5 mg Magnesium Hydroxide (Milk Of Magnesia) 30 ml PO HS PRN PRN Reason: Constipation Multivitamins/Vitamin C (Theragran) 1 tab PO DAILY CORNELL Stop: 04/07/18 08:59 Last Admin: 02/20/18 09:49 Dose: 1 tab Zolpidem Tartrate (Ambien) 5 mg PO HS PRN PRN Reason: Insomnia Stop: 04/06/18 20:14 Last Admin: 02/10/18 20:16 Dose: 5 mg Nutritional Asmnt/Malnutr-PDOC - Dietary Evaluation Malnutrition Findings (Please click <Entered> for more info): Nutritional Asmnt/Malnutrition Start: 02/10/18 16: 27 Text: Status: Complete Freq: Document 02/10/18 16:27 LCHENG (Rec: 02/10/18 16:43 LCHENG [email or web address]) Nutritional Asmnt/Malnutrition Patient General Information Nutritional Screening Moderate Risk Diagnosis psychosis Pertinent Medical Hx/Surgical Hx psychosis, schizophrenia Subjective Information Pt seen sitting on bed at time of visit, having dinner roll. Food preference given. Per EMR, PO intake 75-100%. Current Diet Order/ Nutrition Support vegetarian Pertinent Medications theragran, seroquel Pertinent Labs no lab Nutritional Hx/Data Height 1.75 m Height (Calculated Centimeters) 175.3 Current Weight (lbs) 52.617 kg Weight (Calculated Kilograms) 52.6 Weight (Calculated Grams) 89463.7 [place] Body Weight 145 Body Mass Index (BMI) 17.1 Weight Status Underweight GI Symptoms GI Symptoms None Last BM 02/09 Difficult in: None Skin Integrity/Comment: dryness Current %PO Good (75-100%) Estimated Nutritional Goals BEE in Kcals: Using Current wt Calories/Kcals/Kg 27-32 Kcals Calculated 9686-6616 Protein: Using Current wt Protein g/k.2 Protein Calculated 64 Fluid: ml 1431-1696ml (1ml/kcal) Nutritional Problem 1. Problem Problem underweight Etiology possible inadequate energy intake Signs/Symptoms: BMI 17.1 Malnutrition Alert Body Fat Depletion (Severe) Mod to Severe Depletion Protein-Calorie Malnutrition N/A Is there a minimum of two criteria No selected? Query Text:Check all the applicable criteria. A minimum of two criteria are recommended for diagnosis of either severe or non-severe malnutrition. Intervention/Recommendation Comments 1. Continue with current diet as ordered. food preference updated with courtesy clerk. 2. Monitor PO intake, wt, labs and skin integrity 3. F/U as low risk in 7 days, 02/17 Expected Outcomes/Goals Expected Outcomes/Goals 1. PO intake to meet at least 75% of nutritional needs. 2. Wt stability, skin to remain intact, labs to approach WNL.
[2018-02-21] MEDS: Multivitamin Tab PO SCH (08:23)
--- NOTE | 2018-02-21 17:30 | Progress Notes ---
DATE: 02/20/2018 SUBJECTIVE: Staff was spoken to. The patient is interviewed. Mood is noted to be irritable. Affect is constricted. The patient is stating that she has been waiting for too long and could not figure it out how long she has to wait. The patient has been having difficult time to cope with the stress. No side effects to the medications are noted. The patient is given the Haldol and has been able to tolerate the medications. In view of her noncompliance with the medication, it is decided to go with the Haldol Decanoate today and encourage the patient to verbalize the concerns rather than to act out. The patient is going to be given 50 mg of the Haldol Decanoate today. JOB# [id number]
--- NOTE | 2018-02-22 05:36 | Progress Notes ---
DATE: 02/21/2018 SUBJECTIVE: Staff was spoken to. The patient is interviewed. Mood is noted to be irritable. Affect is constricted. The patient has finally agreed to take the Haldol Decanoate that was given. Coping skills are noted to be still poor. The patient has paranoid delusions. The patient is stating that she has a mobile home and she needs to go there. The patient's sister is stating that she wants a letter to be given saying that the patient is not able to care for herself, so that she can stay at her mobile home. ASSESSMENT: The patient is still psychotic. PLAN: To continue the patient with the supportive therapy and followup. [facility]# [id number]
--- NOTE | 2018-02-22 08:56 | General Progress Note ---
Subjective - Review of Systems Events since last encounter: in no distress irritable Objective - Physical Exam Vitals and I&O: Vital Signs Temp 98.4 F 02/22/18 07:25 Pulse 69 02/22/18 07:25 Resp 20 02/22/18 07:25 BP 128/67 02/22/18 07:25 Pulse Ox 100 02/22/18 07:25 Intake & Output 02/21/18 02/22/18 02/22/18 18:59 06:59 18:59 Intake Total 900 480 Balance 900 480 Intake: Oral 900 480 Other: # Voids 3 2 # Bowel Movements 1 Active Medications: Current Medications Acetaminophen (Tylenol) 650 mg PO Q4HR PRN PRN Reason: Mild Pain / Temp above 100 Stop: 04/06/18 20:14 Last Admin: 02/08/18 05:07 Dose: 650 mg Al Hydrox/Mg Hydrox/Simethicone (Maalox) 30 ml PO Q4HR PRN PRN Reason: GI DISTRESS Stop: 04/06/18 20:14 Haloperidol (Haldol) 2 mg PO BID CORNELL PRN Reason: Protocol Stop: 04/19/18 08:59 Last Admin: 02/21/18 17:03 Dose: 2 mg Haloperidol Decanoate (Haldol Dec) 50 mg IM QMONTH CORNELL PRN Reason: Protocol Stop: 04/21/18 13:59 Last Admin: 02/20/18 14:10 Dose: 50 mg Lorazepam (Ativan) 0.5 mg PO Q4HR PRN; Protocol PRN Reason: Anxiety Stop: 03/07/18 20:14 Last Admin: 02/20/18 09:49 Dose: 0.5 mg Magnesium Hydroxide (Milk Of Magnesia) 30 ml PO HS PRN PRN Reason: Constipation Multivitamins/Vitamin C (Theragran) 1 tab PO DAILY CORNELL Stop: 04/07/18 08:59 Last Admin: 02/21/18 08:23 Dose: 1 tab Zolpidem Tartrate (Ambien) 5 mg PO HS PRN PRN Reason: Insomnia Stop: 04/06/18 20:14 Last Admin: 02/20/18 21:27 Dose: 5 mg Nutritional Asmnt/Malnutr-PDOC - Dietary Evaluation Malnutrition Findings (Please click <Entered> for more info): Nutritional Asmnt/Malnutrition Start: 02/10/18 16: 27 Text: Status: Complete Freq: Document 02/10/18 16:27 SARAI (Rec: 02/10/18 16:43 LCVALARIE [id number]) Nutritional Asmnt/Malnutrition Patient General Information Nutritional Screening Moderate Risk Diagnosis psychosis Pertinent Medical Hx/Surgical Hx psychosis, schizophrenia Subjective Information Pt seen sitting on bed at time of visit, having dinner roll. Food preference given. Per EMR, PO intake 75-100%. Current Diet Order/ Nutrition Support vegetarian Pertinent Medications theragran, seroquel Pertinent Labs no lab Nutritional Hx/Data Height 1.75 m Height (Calculated Centimeters) 175.3 Current Weight (lbs) 52.617 kg Weight (Calculated Kilograms) 52.6 Weight (Calculated Grams) 91844.7 [place] Body Weight 145 Body Mass Index (BMI) 17.1 Weight Status Underweight GI Symptoms GI Symptoms None Last BM 02/09 Difficult in: None Skin Integrity/Comment: dryness Current %PO Good (75-100%) Estimated Nutritional Goals BEE in Kcals: Using Current wt Calories/Kcals/Kg 27-32 Kcals Calculated 4822-3961 Protein: Using Current wt Protein g/k.2 Protein Calculated 64 Fluid: ml 1431-1696ml (1ml/kcal) Nutritional Problem 1. Problem Problem underweight Etiology possible inadequate energy intake Signs/Symptoms: BMI 17.1 Malnutrition Alert Body Fat Depletion (Severe) Mod to Severe Depletion Protein-Calorie Malnutrition N/A Is there a minimum of two criteria No selected? Query Text:Check all the applicable criteria. A minimum of two criteria are recommended for diagnosis of either severe or non-severe malnutrition. Intervention/Recommendation Comments 1. Continue with current diet as ordered. food preference updated with investment accounting clerk. 2. Monitor PO intake, wt, labs and skin integrity 3. F/U as low risk in 7 days, 02/17 Expected Outcomes/Goals Expected Outcomes/Goals 1. PO intake to meet at least 75% of nutritional needs. 2. Wt stability, skin to remain intact, labs to approach WNL.
[2018-02-22] MEDS: Multivitamin Tab PO SCH (09:25)
--- NOTE | 2018-02-23 02:48 | Progress Notes ---
DATE: 02/22/2018 SUBJECTIVE: Staff was spoken to. The patient is interviewed. Mood is noted to be irritable. Affect is constricted. The patient is stating that she has her own mobile home and she needs to go there. Coping skills at this time are noted to be very poor. The patient's sister wants the patient to be placed. The patient has no insight into her illness. The patient has been coming up with excuses saying that her doctor is going to come to pick her up, the next minute her sister is going to come to pick her up, and then she tells me that her mother is going to come to pick her up. The patient is not able to care for herself at this time. The patient needs a facility where her needs can be taken care of. Note, the case management assistant has been trying to look for placement for this patient. JOB# [id number]
--- NOTE | 2018-02-23 08:32 | General Progress Note ---
Subjective - Review of Systems Events since last encounter: irritable in no distress Objective - Physical Exam Vitals and I&O: Vital Signs Temp 97 F 02/23/18 06:30 Pulse 84 02/23/18 06:30 Resp 21 02/23/18 06:30 BP 120/59 02/23/18 06:30 Pulse Ox 98 02/23/18 06:30 Intake & Output 02/22/18 02/23/18 02/23/18 18:59 06:59 18:59 Intake Total 1200 120 Balance 1200 120 Intake: Oral 1200 120 Other: # Voids 3 2 # Bowel Movements 1 Active Medications: Current Medications Acetaminophen (Tylenol) 650 mg PO Q4HR PRN PRN Reason: Mild Pain / Temp above 100 Stop: 04/06/18 20:14 Last Admin: 02/08/18 05:07 Dose: 650 mg Al Hydrox/Mg Hydrox/Simethicone (Maalox) 30 ml PO Q4HR PRN PRN Reason: GI DISTRESS Stop: 04/06/18 20:14 Haloperidol (Haldol) 2 mg PO BID CORNELL PRN Reason: Protocol Stop: 04/19/18 08:59 Last Admin: 02/22/18 16:54 Dose: 2 mg Haloperidol Decanoate (Haldol Dec) 50 mg IM QMONTH CORNELL PRN Reason: Protocol Stop: 04/21/18 13:59 Last Admin: 02/20/18 14:10 Dose: 50 mg Lorazepam (Ativan) 0.5 mg PO Q4HR PRN; Protocol PRN Reason: Anxiety Stop: 03/07/18 20:14 Last Admin: 02/20/18 09:49 Dose: 0.5 mg Magnesium Hydroxide (Milk Of Magnesia) 30 ml PO HS PRN PRN Reason: Constipation Multivitamins/Vitamin C (Theragran) 1 tab PO DAILY CORNELL Stop: 04/07/18 08:59 Last Admin: 02/22/18 09:25 Dose: 1 tab Zolpidem Tartrate (Ambien) 5 mg PO HS PRN PRN Reason: Insomnia Stop: 04/06/18 20:14 Last Admin: 02/20/18 21:27 Dose: 5 mg Nutritional Asmnt/Malnutr-PDOC - Dietary Evaluation Malnutrition Findings (Please click <Entered> for more info): Nutritional Asmnt/Malnutrition Start: 02/10/18 16: 27 Text: Status: Complete Freq: Document 02/10/18 16:27 SARAI (Rec: 02/10/18 16:43 [email or web address] [id number]) Nutritional Asmnt/Malnutrition Patient General Information Nutritional Screening Moderate Risk Diagnosis psychosis Pertinent Medical Hx/Surgical Hx psychosis, schizophrenia Subjective Information Pt seen sitting on bed at time of visit, having dinner roll. Food preference given. Per EMR, PO intake 75-100%. Current Diet Order/ Nutrition Support vegetarian Pertinent Medications theragran, seroquel Pertinent Labs no lab Nutritional Hx/Data Height 1.75 m Height (Calculated Centimeters) 175.3 Current Weight (lbs) 52.617 kg Weight (Calculated Kilograms) 52.6 Weight (Calculated Grams) 53577.7 [place] Body Weight 145 Body Mass Index (BMI) 17.1 Weight Status Underweight GI Symptoms GI Symptoms None Last BM 02/09 Difficult in: None Skin Integrity/Comment: dryness Current %PO Good (75-100%) Estimated Nutritional Goals BEE in Kcals: Using Current wt Calories/Kcals/Kg 27-32 Kcals Calculated 7673-7118 Protein: Using Current wt Protein g/k.2 Protein Calculated 64 Fluid: ml 1431-1696ml (1ml/kcal) Nutritional Problem 1. Problem Problem underweight Etiology possible inadequate energy intake Signs/Symptoms: BMI 17.1 Malnutrition Alert Body Fat Depletion (Severe) Mod to Severe Depletion Protein-Calorie Malnutrition N/A Is there a minimum of two criteria No selected? Query Text:Check all the applicable criteria. A minimum of two criteria are recommended for diagnosis of either severe or non-severe malnutrition. Intervention/Recommendation Comments 1. Continue with current diet as ordered. food preference updated with diet counselor. 2. Monitor PO intake, wt, labs and skin integrity 3. F/U as low risk in 7 days, 02/17 Expected Outcomes/Goals Expected Outcomes/Goals 1. PO intake to meet at least 75% of nutritional needs. 2. Wt stability, skin to remain intact, labs to approach WNL.
[2018-02-23] MEDS: Multivitamin Tab PO SCH (08:42)
--- NOTE | 2018-02-24 02:53 | Progress Notes ---
DATE: 02/23/2018 SUBJECTIVE: Staff was spoken to. The patient is interviewed. Mood is noted to be irritable. Affect is constricted. The patient is insisting that she should be discharged. The patient's case finisher has been mentioning possibly there is going to be a place available tomorrow and they are looking for placement because the patient is not able to care for herself. Continues to be very paranoid. Insight and judgment at this time are noted to be still impaired. ASSESSMENT: The patient is still psychotic. PLAN: To continue the patient's current medications. I encouraged the patient to verbalize the concerns. The patient has been given a dose of Haldol Decanoate in view of her poor compliance. JOB# [id number]
[2018-02-24] MEDS: Multivitamin Tab PO SCH (08:38)
--- NOTE | 2018-02-24 18:28 | General Progress Note ---
Objective - Physical Exam Vitals and I&O: Vital Signs Temp 98.4 F 02/24/18 15:49 Pulse 89 02/24/18 15:49 Resp 18 02/24/18 15:49 BP 118/62 02/24/18 15:49 Pulse Ox 96 02/24/18 15:49 Intake & Output 02/23/18 02/24/18 02/24/18 18:59 06:59 18:59 Intake Total 1500 570 Balance 1500 570 Intake: Oral 1500 570 Other: # Voids 4 3 Active Medications: Current Medications Acetaminophen (Tylenol) 650 mg PO Q4HR PRN PRN Reason: Mild Pain / Temp above 100 Stop: 04/06/18 20:14 Last Admin: 02/08/18 05:07 Dose: 650 mg Al Hydrox/Mg Hydrox/Simethicone (Maalox) 30 ml PO Q4HR PRN PRN Reason: GI DISTRESS Stop: 04/06/18 20:14 Haloperidol (Haldol) 2 mg PO BID CORNELL PRN Reason: Protocol Stop: 04/19/18 08:59 Last Admin: 02/24/18 16:21 Dose: 2 mg Haloperidol Decanoate (Haldol Dec) 50 mg IM QMONTH CORNELL PRN Reason: Protocol Stop: 04/21/18 13:59 Last Admin: 02/20/18 14:10 Dose: 50 mg Lorazepam (Ativan) 0.5 mg PO Q4HR PRN; Protocol PRN Reason: Anxiety Stop: 03/07/18 20:14 Last Admin: 02/20/18 09:49 Dose: 0.5 mg Magnesium Hydroxide (Milk Of Magnesia) 30 ml PO HS PRN PRN Reason: Constipation Multivitamins/Vitamin C (Theragran) 1 tab PO DAILY CORNELL Stop: 04/07/18 08:59 Last Admin: 02/24/18 08:38 Dose: 1 tab Zolpidem Tartrate (Ambien) 5 mg PO HS PRN PRN Reason: Insomnia Stop: 04/06/18 20:14 Last Admin: 02/20/18 21:27 Dose: 5 mg Nutritional Asmnt/Malnutr-PDOC - Dietary Evaluation Malnutrition Findings (Please click <Entered> for more info): Nutritional Asmnt/Malnutrition Start: 02/10/18 16: 27 Text: Status: Complete Freq: Document 02/10/18 16:27 LCHENG (Rec: 02/10/18 16:43 LCHENG [id number]) Nutritional Asmnt/Malnutrition Patient General Information Nutritional Screening Moderate Risk Diagnosis psychosis Pertinent Medical Hx/Surgical Hx psychosis, schizophrenia Subjective Information Pt seen sitting on bed at time of visit, having dinner roll. Food preference given. Per EMR, PO intake 75-100%. Current Diet Order/ Nutrition Support vegetarian Pertinent Medications theragran, seroquel Pertinent Labs no lab Nutritional Hx/Data Height 1.75 m Height (Calculated Centimeters) 175.3 Current Weight (lbs) 52.617 kg Weight (Calculated Kilograms) 52.6 Weight (Calculated Grams) 57948.7 [place] Body Weight 145 Body Mass Index (BMI) 17.1 Weight Status Underweight GI Symptoms GI Symptoms None Last BM 02/09 Difficult in: None Skin Integrity/Comment: dryness Current %PO Good (75-100%) Estimated Nutritional Goals BEE in Kcals: Using Current wt Calories/Kcals/Kg 27-32 Kcals Calculated 3341-1294 Protein: Using Current wt Protein g/k.2 Protein Calculated 64 Fluid: ml 1431-1696ml (1ml/kcal) Nutritional Problem 1. Problem Problem underweight Etiology possible inadequate energy intake Signs/Symptoms: BMI 17.1 Malnutrition Alert Body Fat Depletion (Severe) Mod to Severe Depletion Protein-Calorie Malnutrition N/A Is there a minimum of two criteria No selected? Query Text:Check all the applicable criteria. A minimum of two criteria are recommended for diagnosis of either severe or non-severe malnutrition. Intervention/Recommendation Comments 1. Continue with current diet as ordered. food preference updated with dietary server. 2. Monitor PO intake, wt, labs and skin integrity 3. F/U as low risk in 7 days, 02/17 Expected Outcomes/Goals Expected Outcomes/Goals 1. PO intake to meet at least 75% of nutritional needs. 2. Wt stability, skin to remain intact, labs to approach WNL.
--- NOTE | 2018-02-24 20:16 | Discharge Summary ---
DATE OF DISCHARGE: 02/24/2018 IDENTIFYING DATA: The patient is a 72-year-old woman admitted on 5150 as she was transferred from the [facility]. CHIEF COMPLAINT: "I should not be in here." DIAGNOSES AT THE TIME OF ADMISSION: AXIS I. Psychotic disorder, not otherwise specified. AXIS IB. Dementia and behavioral change, secondary ataxia. AXIS II: None. AXIS III: As per Dr. Pompa. HISTORY OF PRESENT ILLNESS: Please refer to the 02/05/2018 dictation done by me. Physical examination was done by Dr. Clement and is noted to be within normal limits. The patient, however, is reported to have an injury to the left shoulder and has been in a sling. The patient had a broken left arm and has been in a sling. HOSPITAL COURSE AND RESPONSE TO TREATMENT: Blood work done to the hospitalization has been reviewed and is noted to be within normal limits. Lab studies done during the hospitalization have been reviewed and no major intervention was needed. The patient has initially been very irritable and angry and has been focused on getting Adderall and other benzodiazepines. The patient has not been willing to comply. The patient has been noted to be very paranoid. One minute, she is saying that her mother is going to come to pick her up. The next minute, she is seeing her district attorney is going to come to pick her up and then later she mentioned that her doctor is going to come to pick her up. The patient has been placed on Haldol and apparently, the patient has been given the Haldol Decanoate 50 mg IM on 02/20/2018. The patient has been able to tolerate the medication. The placement became an issue and the patient was finally discharged to the halfway facility for further followup on an outpatient basis. MENTAL STATUS EXAMINATION: At the time of discharge, patient's mood is noted to be less irritable. Affect is appropriate. Not suicidal or homicidal. Insight and judgment are improving. Impulse control seems to be fair. No side effects to the medications are noted. The patient has been able to verbalize the concerns rather than to act out at the time of the discharge. CONDITION: At the time of discharge noted to be stable. DIAGNOSES AT THE TIME OF DISCHARGE: AXIS I: Schizophrenia, chronic paranoid type; rule out schizoaffective disorder. AXIS II: None. AXIS III: Injury to the site of fracture of the left arm. AFTERCARE PLAN: [facility] basis. PROGNOSIS: At the time of discharge noted to be guarded. [facility]# [id number]
== END 2018-02-24 19:45 | DRG 885 ==
LOC: GERO2 12:17 → GERO 02-06 16:02
PROVIDERS: ADMIT Psychiatry & Neurology Psychiatry; ATTEND Psychiatry & Neurology Psychiatry
DX: F25.9 Schizoaffective disorder, unspecified (principal); F03.91 Unspecified dementia, unspecified severity, with behavioral disturbance; F29 Unspecified psychosis not due to a substance or known physiological condition; R27.0 Ataxia, unspecified; X58.XXXA Exposure to other specified factors, initial encounter; S49.92XA Unspecified injury of left shoulder and upper arm, initial encounter; M19.90 Unspecified osteoarthritis, unspecified site; Z88.5 Allergy status to narcotic agent; Z88.8 Allergy status to other drugs, medicaments and biological substances; Y93.89 Activity, other specified; Y92.89 Other specified places as the place of occurrence of the external cause
CPT/HCPCS: 90899; G0410; J1200; J1630; J1631; J2060; Z7610